=== PATIENT | male | born 1940 | race Caucasian/White ===

== ENCOUNTER → 2020-03-18 | Outpatient (CLI) | payer MEDICARE, OTHER ==
[~2020-03-18] MED LIST: ACET500T33 PO; GABA-586 PO; LISI-334 PO; LISI1TAB20 PO
[2020-03-18 13:20] VITALS: BP 128/69
== END | disposition home or self-care (01) ==
LOC: SURG 13:09
PROVIDERS: ATTEND Anesthesiology
DX: M54.2 Cervicalgia (principal); M79.2 Neuralgia and neuritis, unspecified; M79.671 Pain in right foot; Z79.899 Other long term (current) drug therapy; Z88.5 Allergy status to narcotic agent
CPT/HCPCS: 99204; G0463